=== PATIENT | male | born 1995 | race Caucasian/White ===

== ENCOUNTER → 2019-04-13 | Outpatient (REF) | payer OTHER | LOC: M LAB REF 09:13 | PROVIDERS: ATTEND Surgery | DX: D17.1 Benign lipomatous neoplasm of skin and subcutaneous tissue of trunk (principal) ==

== ENCOUNTER 2020-08-21 12:32 | Day surgery (SDC) | payer OTHER ==
[~2020-08-21] VITALS: Ht 182.9 cm; Wt 108.0 kg
[~2020-08-21 12:32] MED LIST: NS 1,000 ML IV ONE
[2020-08-21] MEDS ORDERED: LIDOCAINE 2% 100MG/5ML SDV (FOR ANES.) As Ordered ONE (13:18)
[2020-08-21] MEDS ORDERED: propofoL 200 MG/20 ML VIAL As Ordered ONE (13:18)
[2020-08-21] MEDS ORDERED: MULT-90 PO (13:34)
--- NOTE | 2020-08-21 14:38 | ROOR ---
Patient Name: Mark Rae Procedure Date: 08/21/2020 2:10 PM Date of : 1995 Age: 25 Room: [facility] Gender: Male Note Status: Finalized Procedure: Total Colonoscopy to Cecum + ileoscopy + Bx Indications: Rectal bleeding, Change in bowel habits Providers: Moy Mann MD Referring MD: ADRIANE FORREST MD Requesting Provider: Medicines: Monitored Anesthesia Care Complications: No immediate complications. Procedure: Pre-Anesthesia Assessment: - The heart rate, respiratory rate, oxygen saturations, blood pressure, adequacy of pulmonary ventilation, and response to care were monitored throughout the procedure. The Colonoscope was introduced through the anus and advanced to the terminal ileum, with identification of the appendiceal orifice and IC valve. The colonoscopy was performed without difficulty. The patient tolerated the procedure well. The quality of the bowel preparation was good. Findings: The perianal and digital rectal examinations were normal. Localized mild inflammation characterized by altered vascularity, congestion (edema), erythema and loss of vascularity was found in the recto-sigmoid colon. Biopsies were taken with a cold forceps for histology. No other significant abnormalities were identified in a careful examination of the remainder of the colon. The terminal ileum appeared normal. Biopsies were taken with a cold forceps for histology. The rectum appeared normal. Biopsies were taken with a cold forceps for histology. The exam was otherwise without abnormality. Impression: - Localized mild inflammation was found in the recto-sigmoid colon secondary to left-sided ulcerative colitis. Biopsied. - The examined portion of the ileum was normal. Biopsied. - The rectum is normal. Biopsied. - The examination was otherwise normal. - The exam was otherwise normal to the cecum. Recommendation: - Patient has a contact number available for emergencies. The signs and symptoms of potential delayed complications were discussed with the patient. Return to normal activities tomorrow. Written discharge instructions were provided to the patient. - Resume previous diet. - Discharge patient to home. - Continue present medications. - Await pathology results. - Telephone GI clinic for pathology results in 1 week. - Use Lialda 1.2 gm at 3 tabs PO daily. - Return to GI office in 6 weeks. - The findings and recommendations were discussed with the patient. Procedure Code(s): --- Professional --- 85205, Colonoscopy, flexible; with biopsy, single or multiple Diagnosis Code(s): --- Professional --- K51.511, Left sided colitis with rectal bleeding K62.5, Hemorrhage of anus and rectum R19.4, Change in bowel habit CPT copyright 2019 [employer]. All rights reserved. The codes documented in this report are preliminary and upon container crane operator review may be revised to meet current compliance requirements. Moy Mann MD Moy Mann MD 08/21/2020 2:38:02 PM Electronically signed by Moy Mann MD Number of Addenda: 0 Note Initiated On: 08/21/2020 2:10 PM Estimated Blood Loss: Estimated blood loss: none.
[2020-08-21 14:55] VITALS: BP 131/70
== END 2020-08-21 15:07 | disposition home or self-care (01) ==
LOC: M OPP 12:32
PROVIDERS: ATTEND Internal Medicine Gastroenterology
DX: K51.511 Left sided colitis with rectal bleeding (principal); K62.5 Hemorrhage of anus and rectum; R19.4 Change in bowel habit